=== PATIENT | male | born 1970 | race Caucasian/White ===

== ENCOUNTER 2017-08-24 19:45 | Emergency (ER) | payer OTHER ==
[~2017-08-24] VITALS: Ht 177.8 cm; Wt 98.4 kg
[~2017-08-24 19:45] MED LIST: BLOOD PRESSURE MED; COZAAR 50 MG TA50 M1; COZAAR 50 MG TA50 M2 PO; CRESTOR10 MG PO; FENOFIBRATE160 MG; FLEXERIL PO; PERCOCET 7.5-31 EACH PO; PREDNISONE 20 M20 M1 PO; TRIAMTERENE-HC1 EAC1 PO; TRILIPIX135 MG PO; TRILIPIX45 MG PO; ULTRAM 50MG TAB50 MG PO; VENTOLIN HFA 1818 GM INH; ZPAK PO
[2017-08-24] MEDS ORDERED: AMLODIPINE BESY10 MG PO (19:49)
[2017-08-24 20:10] LABS: ABSOLUTE BASOPHILS 0.2 thou/uL (0.0-0.2); ABSOLUTE EOSINOPHILS 0.3 thou/uL (0.0-0.7); ABSOLUTE LYMPHOCYTES 3.1 thou/uL (0.8-5.3); ABSOLUTE MONOCYTES 0.5 thou/uL (0.0-1.2); ABSOLUTE NEUTROPHILS 3.4 thou/uL (1.6-8.1); HEMATOCRIT 48.2 % (42.0-52.0); HEMOGLOBIN 17.1 gm/dL (14.0-18.0); MCH 31.6 pg (26.0-34.0); MCHC 35.3 g/dL (28.0-37.0); MCV 89.5 fL (80.0-100.0); MONOCYTES 6.7 %; MPV 7.1 fl. (7.2-11.1); NUCLEATED RBCS 0 /100WBC; PLATELET COUNT* 248 thou/uL (150-400); POLYS 45.3 %; RBC 5.39 mil/uL (4.50-6.00); RDW-CV 13.1 % (10.5-14.5); WBC 7.5 thou/uL (4.0-11.0)
[2017-08-24 20:19] LABS: ANION GAP 10 mmol/L (7-16); BUN 17 mg/dL (7-18); CALCIUM 9.2 mg/dL (8.5-10.1); CHLORIDE 104 mmol/L (98-107); CO2 26 mmol/L (21-32); CREATININE 1.2 mg/dL (0.6-1.3); GLUCOSE 136 mg/dL (70-99); POTASSIUM 3.8 mmol/L (3.5-5.1); SODIUM 140 mmol/L (136-145)
[2017-08-24 20:27] LABS: APTT 29.2 Seconds (25.0-31.3); PROTIME 10.2 Seconds (9.20-11.50)
[2017-08-24 20:33] LABS: ALBUMIN 4.3 g/dL (3.4-5.0); ALKALINE PHOSPHATASE 99 U/L (46-116); NT-PRO BRAIN NAT PEPTIDE 6 pg/mL (<300); SGPT 31 U/L (30-65); TOTAL BILIRUBIN 0.3 mg/dL (<0.1-1.0); TOTAL PROTEIN 7.5 g/dL (6.4-8.2); TROPONIN-I LEVEL <0.06 ng/mL (<0.06)
[2017-08-24 20:51] VITALS: BP 108/64
[2017-08-24 21:06] LABS: SGOT 33.6 U/L (15-37)
--- NOTE | 2017-08-25 13:53 | EKG ---
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 : 1970 Requested By: Marbin Dougherty Order Number: [id number] MD: Oscar Willis Measurements Intervals [place] Rate: 97 P: 65 CT: 142 QRS: 41 QRSD: 93 T: 147 QT: 357 QTc: 454 Interpretive Statements Sinus rhythm Borderline T abnormalities, diffuse leads Compared to ECG 12/21/2011 08:41:51 T-wave abnormality now present 4 Electronically Signed On 08-25-2017 13:53:37 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
== END 2017-08-24 20:51 | disposition home or self-care (01) ==
LOC: M.ERS 19:45
PROVIDERS: Family Medicine
DX: F41.0 Panic disorder [episodic paroxysmal anxiety] (principal); F10.929 Alcohol use, unspecified with intoxication, unspecified; I10 Essential (primary) hypertension; E78.00 Pure hypercholesterolemia, unspecified

== ENCOUNTER → 2018-06-20 | Outpatient (CLI) | payer OTHER ==
[~2018-06-20] MED LIST changes: +AMLODIPINE BESY10 MG PO
== END ==
LOC: M.CT 10:46
DX: R10.823 Right lower quadrant rebound abdominal tenderness (principal); R10.31 Right lower quadrant pain; R63.4 Abnormal weight loss

== ENCOUNTER → 2019-11-23 | Emergency (ER) | payer OTHER ==
[~2019-11-23] VITALS: Ht 175.3 cm; Wt 93.0 kg
[~2019-11-23] MED LIST changes: +CENTANY30 GM TOP
[2019-11-23 22:00] VITALS: BP 125/70
== END ==
LOC: M.ERS 21:13
DX: T81.30XA Disruption of wound, unspecified, initial encounter (principal); I10 Essential (primary) hypertension; E78.00 Pure hypercholesterolemia, unspecified

== ENCOUNTER → 2021-02-15 | Outpatient (CLI) | payer OTHER | LOC: M.ULTRA 07:11 | PROVIDERS: ATTEND Family Medicine | DX: R16.0 Hepatomegaly, not elsewhere classified (principal); R74.8 Abnormal levels of other serum enzymes ==